=== PATIENT | male | born 1945 | race Caucasian/White ===

== ENCOUNTER 2016-08-14 17:58 | Emergency (ER) | payer OTHER ==
[2016-08-14 18:19] VITALS: BP 187/93; PULSE 95; TEMP 98.1; BMI 24.2
--- NOTE | 2016-08-14 19:26 | PDOC ---
History of Present Illness - General History Source: Patient Exam Limitations: No Limitations - History of Present Illness Initial Comments: 08/14/16 19:45 The patient is a 70 year old male presenting with his , with a significant past medical history of macular degeneration and hemorrhoids, who presents to the emergency department with abdominal pain and rectal bleeding onset today. He describes the abdominal pain as ranging from mild to moderate, as a cramping sensation. He denies any radiation or modifying factors. He reports that he had 3 episodes of rectal bleeding following each bowel movement. He describes the blood as a small amount of bright red, mixed with mucous. The patient denies chest pain, shortness of breath, headache and dizziness. Denies fever, chills, nausea, vomit, diarrhea and constipation. Denies dysuria, frequency, urgency and hematuria. Allergies: None Past surgical history: None reported Social history: Daily alcohol use (2-3 glasses). No tobacco or drug use reported PMD - Dr. Eron Norton <Valdemar Guerra - Last Filed: 08/14/16 21:41> <Anaya Diaz - Last Filed: 08/15/16 00:10> - General Chief Complaint: Rectal Bleed Stated Complaint: SMALL AMOUNT BLOODY MUCUS BM Time Seen by Provider: 08/14/16 19:10 Past History <Valdemar Guerra - Last Filed: 08/14/16 21:41> - Past Medical History GI Disorders: Yes (HEMORRHOIDS) Other medical history: MACULAR DEGENERATION - Psycho/Social/Smoking Cessation Hx Suicidal Ideation: No Smoking History: Never smoked Hx Alcohol Use: No Drug/Substance Use Hx: No <Anaya Diaz - Last Filed: 08/15/16 00:10> - Past Medical History Allergies/Adverse Reactions: Allergies Allergy/AdvReac Type Severity Reaction Status Date / Time No Known Allergies Allergy Verified 08/14/16 18:00 Home Medications: Ambulatory Orders Vit C/Vit E/Lutein/Min/[place]-3 [Ocuvite Softgel] 1 each PO DAILY 08/14/16 Review of Systems - Review of Systems Able to Perform ROS?: Yes Comments:: 08/14/16 19:45 GENERAL/CONSTITUTIONAL: No fever or chills. No weakness. HEAD, EYES, EARS, NOSE AND THROAT: No change in vision. No ear pain or discharge. No sore throat. CARDIOVASCULAR: No chest pain or shortness of breath RESPIRATORY: No cough, wheezing, or hemoptysis. GASTROINTESTINAL: (+) Abdominal pain and rectal bleeding. No nausea, vomiting, diarrhea or constipation. GENITOURINARY: No dysuria, frequency, or change in urination. MUSCULOSKELETAL: No joint or muscle swelling or pain. No neck or back pain. SKIN: No rash NEUROLOGIC: No headache, vertigo, loss of consciousness, or change in strength/ sensation. ENDOCRINE: No increased thirst. No abnormal weight change HEMATOLOGIC/LYMPHATIC: No anemia, easy bleeding, or history of blood clots. ALLERGIC/IMMUNOLOGIC: No hives or skin allergy. <Valdemar Guerra - Last Filed: 08/14/16 21:41> *Physical Exam - Vital Signs Last Vital Signs Temp Pulse Resp BP Pulse Ox 98.1 F 95 H 18 187/93 100 08/14/16 17:58 08/14/16 17:58 08/14/16 17:58 08/14/16 17:58 08/14/16 17:58 - Physical Exam Comments: 08/14/16 19:45 GENERAL: Awake, alert, and fully oriented, in no acute distress HEAD: No signs of trauma, normocephalic, atraumatic EYES: PERRLA, EOMI, sclera anicteric, conjunctiva clear ENT: (+) Dry Mucous membrane. Auricles normal inspection, hearing grossly normal , nares patent, oropharynx clear without exudates. NECK: Normal ROM, supple, no lymphadenopathy, JVD, or masses LUNGS: No distress, speaks full sentences, clear to auscultation bilaterally HEART: Regular rate and rhythm, normal S1 and S2, no murmurs, rubs or gallops, peripheral pulses normal and equal bilaterally. ABDOMEN: (+) Hyperactive bowel sounds, left lower quadrant and suprapubic tenderness. Soft, No guarding, no rebound. No masses. No peritoneal signs EXTREMITIES: Normal inspection, Normal range of motion, no edema. No clubbing or cyanosis. NEUROLOGICAL: Cranial nerves II through XII grossly intact. Normal speech, normal gait, no focal sensorimotor deficits SKIN: Warm, Dry, normal turgor, no rashes or lesions noted. RECTAL EXAM: (+) Internal palpable hemrrhoid. No external hemrrhoids. No active bleeding. <Valdemar Guerra - Last Filed: 08/14/16 21:41> - Vital Signs Last Vital Signs Temp Pulse Resp BP Pulse Ox 98.1 F 95 H 18 187/93 100 08/14/16 17:58 08/14/16 17:58 08/14/16 17:58 08/14/16 17:58 08/14/16 17:58 <Anaya Diaz - Last Filed: 08/15/16 00:10> ED Treatment Course - LABORATORY CBC & Chemistry Diagram: 08/14/16 19:40 08/14/16 19:40 <Valdemar Guerra - Last Filed: 08/14/16 21:41> - LABORATORY CBC & Chemistry Diagram: 08/14/16 19:40 08/14/16 19:40 <Anaya Diaz - Last Filed: 08/15/16 00:10> Progress Note - Progress Note Progress Note: Documentation has been prepared under my direction and personally reviewed by me in its entirety. I attest that this documented accurately reflects all work, treatment, procedures and medical decision making performed by me. <Anaya Diaz - Last Filed: 08/15/16 00:10> Medical Decision Making - Medical Decision Making As noted above, this 70-year-old man presents with a one-day history of lower abdominal cramping pain associated with passage of mucus followed by small amount of red blood per rectum. There has been no watery/loose stool. He has had no associated symptoms of vomiting or fever. No previous history of this type of illness; he has not had any recent travel or unusual food ingestions. No previous history of diverticulitis or other colonic issues. Patient has not had screening colonoscopy yet. Exam as noted Rectal exam specimen of stool for occult blood is negative Remainder of diagnostic laboratory evaluation is essentially normal without elevation of white blood cell count or evidence of anemia. Electrolytes/renal function/LFTs are within normal range. Abdominal/pelvic CT with oral and IV contrast shows thickening of the descending colon consistent with colitis. Although there are diverticula present, there is no evidence of acute diverticulitis. No evidence of abscess or other masses. Solid organs are also without significant evidence of abnormality. Results discussed with the patient. Patient has had no further lower abdominal pain while present here in the emergency room. He states that since the CT study, he had bowel movement consisting of the oral contrast. He noted no blood in this stool. Patient will be discharged with instructions to maintain light diet. He should contact his PMD, Dr. Norton tomorrow to arrange follow-up within the next few days. He should return to the emergency room if he has worsening pain or experiences fever/vomiting <Anaya Diaz - Last Filed: 08/15/16 00:10> *DC/Admit/Observation/Transfer - Attestations Scribe Attestion: 08/14/16 19:46 Documentation prepared by Valdemar Guerra, acting as medical translator for Anaya Diaz MD <Valdemar Guerra - Last Filed: 08/14/16 21:41> <Anaya Diaz - Last Filed: 08/15/16 00:10> Diagnosis at time of Disposition: Colitis - Discharge Dispostion Disposition: HOME Condition at time of disposition: Stable - Referrals Referrals: Eron Norton MD [Primary Care Provider] - - Patient Instructions Printed Discharge Instructions: DI for Colitis, DI for Hemorrhoids Additional Instructions: light diet continue to drink plenty of water call Dr Norton's office for followup within next 5 days return to ER if pain/bleedingworsens or you develop fever/vomiting
[2016-08-14 19:54] LABS: PH,URINE 5.5 (4.5-8); URINE APPEARANCE Clear; URINE BILIRUBIN 1+ (NEGATIVE); URINE BLOOD Negative (NEGATIVE); URINE GLUCOSE (UA) Negative (NEGATIVE); URINE KETONE 4+ (NEGATIVE); URINE LEUK ESTERASE Trace (NEGATIVE); URINE NITRITE Negative (NEGATIVE); URINE PROTEIN Trace (NEGATIVE); URINE UROBILINOGEN 0.2 E.U/dl (0.2-1.0)
[2016-08-14 19:58] LABS: URINE COLOR YELLOW
[2016-08-14 19:59] LABS: MCH 32.3 pg (25.7-33.7); MCHC 34.8 g/dl (32.0-35.9); MEAN CELL VOLUME 92.8 fl (80-96); MEAN PLT VOLUME 9.6 fl (7.5-11.1); PLATELET COUNT 211 K/MM3 (134-434); RDW 11.7 % (11.9-15.9); WHITE BLOOD COUNT 8.8 K/mm3 (4.0-10.8)
[2016-08-14 20:11] LABS: INR 1.06 (0.82-1.09); PROTHROMBIN TIME (PATIENT) 11.8 SEC (10.2-13.0)
[2016-08-14 20:13] LABS: ALBUMIN 4.5 g/dl (3.5-5.0); ALK PHOS 91 U/L (32-92); ANION GAP 11 (8-16); BILIRUBIN,TOTAL 1.1 mg/dl (0.2-1.0); CALCIUM 9.1 mg/dl (8.4-10.2); CO2 21 mmol/L (22-28); CREATININE 0.8 mg/dl (0.6-1.3); GLUCOSE,RANDOM 107 mg/dl (74-106); SGOT/AST 21 U/L (10-42); SGPT/ALT 17 U/L (10-40); TOT PROT 7.4 g/dl (6.4-8.3)
[2016-08-14 21:11] LABS: PLATELET ESTIMATE ADEQUATE (NORMAL)
[2016-08-14] MEDS ORDERED: SODIUM CHLORIDE 1,000 ML IV STA (21:29)
== END 2016-08-14 22:25 | disposition home or self-care (01) ==
LOC: FER 17:58
PROC: 3E0337Z Introduction of Electrolytic and Water Balance Substance into Peripheral Vein, Percutaneous Approach (ICD-10-PCS; principal; 2016-08-14)
DX: K52.9 Noninfective gastroenteritis and colitis, unspecified (principal); H35.30 Unspecified macular degeneration; K64.9 Unspecified hemorrhoids
CPT/HCPCS: 36415; 74177-TC; 80053; 81003; 82272; 85025; 85610; 99283-25